=== PATIENT | female | born 1960 | race Caucasian/White ===

== ENCOUNTER 2016-11-25 14:56 | Emergency (ER) | payer OTHER ==
--- NOTE | 2016-11-25 15:15 | ER Document Report ---
ED Medical Screen (RME) - General Stated Complaint: DIFFICULTY SWALLOWING/ OBJECT STUCK IN THROAT Mode of Arrival: Ambulatory Information source: Patient Notes: Patient reports that she was eating chicken 8 days ago and feels as though a chicken bone may have gotten caught in her throat. Patient feels like her asthma has been flaring up over the past 4 days. No vomiting. Patient able to take oral liquids and foods without difficulty. Patient states she did have difficulty swallowing large pills. hx: Asthma, hypertension I have greeted and performed a rapid initial assessment of this patient. A comprehensive ED assessment and evaluation of the patient, analysis of test results and completion of the medical decision making process will be conducted by additional ED providers. TRAVEL OUTSIDE OF THE [place] IN LAST 30 DAYS: No Physical Exam - Respiratory Respiratory status: No respiratory distress Breath sounds: Normal
[2016-11-25] MEDS ORDERED: SUCRALFATE SUSP 1 GM/10 ML UDCUP PO ONE (17:53)
[2016-11-25] MEDS ORDERED: LIDOCAINE 2% VISCOUS SOLN 20 ML UDCUP PO ONE (17:53)
--- NOTE | 2016-11-25 17:56 | ER Document Report ---
HPI - HPI Patient complains to provider of: dysphagia Pain Level: 1 Context: Abdomen the right side versus throat after eating chicken at a jewish function ready days ago. Patient states over the past 3 days she's had swelling longer neck course throat and difficulty swallowing. Past medical history significant for asthma, hypertension, pulmonary hypertension, history of chest pain, Past surgical history significant for cholecystectomy, T&A, tubal ligation, history of heart catheter 2 was recently a urinalysis. Social history denies any tobacco, alcohol, drug use. - CARDIOVASCULAR Cardiovascular: DENIES: Chest pain - DERM Skin Color: Normal, [place] Past Medical History - General Information source: Patient - Social History Smoking Status: Unknown if Ever Smoked Family History: Reviewed & Not Pertinent Patient has suicidal ideation: No Patient has homicidal ideation: No Renal/ Medical History: Denies: Hx Peritoneal Dialysis - Immunizations Hx Diphtheria, Pertussis, Tetanus Vaccination: No Vertical Provider Document - CONSTITUTIONAL Agree With Documented VS: Yes Exam Limitations: No Limitations General Appearance: WD/WN, No Apparent Distress - INFECTION CONTROL TRAVEL OUTSIDE OF THE [place] IN LAST 30 DAYS: No - HEENT HEENT: Atraumatic, Normal ENT Exam, Normocephalic, PERRLA. negative: Pharyngeal Exudate, Pharyngeal Tenderness, Pharyngeal Erythema, Tympanic Membrane Red, Tympanic Membrane Bulging Notes: No evidence of retropharyngeal abscess. Patient has had a tonsil and adenoids removed so there is no peritonsillar abscess. - NECK Neck: Normal Inspection. negative: Lymphadenopathy-Left, Lymphadenopathy-Right - RESPIRATORY Respiratory: Breath Sounds Normal, No Respiratory Distress, Chest Non-Tender. negative: Rales, Rhonchi, Wheezing O2 Sat by Pulse Oximetry: 99 - CARDIOVASCULAR Cardiovascular: Regular Rate, Regular Rhythm, No Murmur Pulses: Normal: Radial - NEURO Level of Consciousness: Awake, Alert, Appropriate Motor/Sensory: No Motor Deficit, No Sensory Deficit - DERM Integumentary: Warm, Dry, No Rash Course - Re-evaluation Re-evalutation: 11/25/16 22:50 A she is a 56-year-old female who is hemodynamically stable, no acute distress and afebrile. History, physical exam do not reveal any concern for retained foreign body, abscess. Chest x-ray and soft tissue of the neck x-ray did not reveal any retained foreign body. Exam does not reveal any swelling, erythema, induration, swelling. Patient is able to tolerate by mouth without any difficulty. We will discharge patient home with adequate mouthwash solution and can follow-up with her primary care provider in the next 5 days. - Vital Signs Vital signs: Temp Pulse Resp BP Pulse Ox 98.0 F 77 16 177/84 H 99 11/25/16 15:15 11/25/16 15:15 11/25/16 15:15 11/25/16 15:15 11/25/16 15:15 Discharge - Discharge Clinical Impression: Dysphagia Qualifiers: Dysphagia type: unspecified Qualified Code(s): R13.10 - Dysphagia, unspecified Condition: Good Disposition: HOME, SELF-CARE Additional Instructions: It is possible that the cause of your difficulty swallowing is due to an abrasion from food ingestion Pleas take the medications prescribed to you as instructed Follow up with your primary care doctor in 5-7 days Prescriptions: Nystatin/Dexameth/Diphen [Magic Mouthwash (Omh Formula) Susp] 5 ml PO QID PRN # 120 ml PRN Reason: Pantoprazole Sodium [Protonix] 20 mg PO DAILY #30 tablet.dr Forms: Elevated Blood Pressure, Return to Work Referrals: MARYAM BOYD MD [Primary Care Provider] - Follow up in 1 week
[2016-11-25 18:11] VITALS: BP 145/78
== END 2016-11-25 18:10 | disposition home or self-care (01) ==
LOC: ER 14:56
DX: R13.10 Dysphagia, unspecified (principal); I10 Essential (primary) hypertension; Z90.49 Acquired absence of other specified parts of digestive tract; Z98.51 Tubal ligation status
CPT/HCPCS: 99284; 71020; 70360; J3490

== ENCOUNTER → 2017-07-24 | Outpatient (CLI) | payer OTHER ==
--- NOTE | 2017-07-24 12:54 | RADIOLOGY REPORT (SQ) ---
EXAM DESCRIPTION: BARIUM SWALLOW PHARYNX ONLY COMPLETED DATE/TIME: 07/24/2017 8:48 am REASON FOR STUDY: DYSPHAGIA (R13.10) R13.10 DYSPHAGIA, UNSPECIFIED COMPARISON: Soft tissue neck films 11/25/2016 Two-view chest 11/25/2016 TECHNIQUE: Under fluoroscopic guidance, patient ingested effervescent granules followed by thick and thin barium. Fluoroscopic spot images and routine radiographic images acquired and stored on PACS. 12 MM BARIUM TABLET GIVEN: Yes LIMITATIONS: None. FLUOROSCOPY TIME: FLUORO TIME: 32 seconds 10 series of images saved to PACS. FINDINGS: NEUROMUSCULAR COORDINATION OF SWALLOW: Normal. No aspiration. ESOPHAGEAL MOTILITY: Normal peristalsis. No esophageal spasm. ESOPHAGEAL MUCOSA: Normal mucosa without masses or ulceration. GASTRO-ESOPHAGEAL JUNCTION: No hiatal hernia or reflux. NON-GI TRACT STRUCTURES: No significant finding. OTHER: No other significant finding. IMPRESSION: NORMAL DOUBLE CONTRAST BARIUM SWALLOW. COMMENT: Quality ID [id number]: Final reports for procedures using fluoroscopy that document radiation exp osure indices, or exposure time and number of fluorographic images (if radiation exposure indices are not available) TECHNICAL DOCUMENTATION: JOB ID: [id number] [employer]- All Rights Reserved
== END ==
LOC: RAD 08:03
PROVIDERS: ATTEND Internal Medicine
DX: R13.10 Dysphagia, unspecified (principal)
CPT/HCPCS: 74210